=== PATIENT | female | born 1990 | race African-American/Black ===

== ENCOUNTER 2017-03-12 08:00 | Inpatient (IN) | payer OTHER ==
[~2017-03-12 08:00] MED LIST: CITRIC ACID/SODIUM CITRATE 30 ML UNIT-DOSE CUP PO ONE; ELECTROLYTE-148 SOLN 500 ML IV ONE
[2017-03-12 09:26] VITALS: BMI 34.7
[2017-03-12] MEDS: ELECTROLYTE-148 SOLN 1,000 ML IV SCH (09:33)
[2017-03-12] MEDS ORDERED: morphine SULFATE/Preservative Free 0.5 MG/ML (1cc Syringe) EP ONE (10:01)
[2017-03-12] MEDS ORDERED: IBUPROFEN 800 MG/8 ML IJ IVPB PRN (10:01)
[2017-03-12] MEDS ORDERED: ONDANSETRON 4 MG/2 ML VIAL IVPB PRN (10:01)
--- NOTE | 2017-03-12 10:08 | HP ---
Past Medical History - Admission History of Present Illness: 26 y/o female with Di/Di Twin IUP at 38 weeks here for scheduled primary section for breech/breech twins. has been uncomplicated thus far. Followed with MFM throughout - testing all WNL. Bpositive , RPR negative, HepBSag negative, Rubella equivocal. History Source: Patient, Medical Record Limitations to Obtaining History: No Limitations - Past Medical History Cardiovascular: No: HTN, DC Pulmonary: No: COPD Gastrointestinal: No: GERD, Hemorrhoids Hepatobiliary: No: Cholecystitis, Hepatitis B Renal/: No: Renal Inusuff, UTI Reproductive: No: Ectopic , Fibroids ...: 3 ...Para: 2 ...Term: 2 ...: 0 ...Spon : 0 ...Induced : 0 ...LMP: 06/19/16 ... Weeks Gestation by Dates: 38 ...EDC by Dates: 03/26/17 ...EDC by Sono: 03/24/17 Heme/Onc: Yes: Sickle Cell Trait Infectious Disease: No: MRSA, STD's Psych: No: Anxiety, Bipolar, Depression - Past Surgical History Past Surgical History: Yes: None Hx Myomectomy: No Hx Transabdominal Cerclage: No - Smoking History Smoking history: Never smoked Have you smoked in the past 12 months: No - Alcohol/Substance Use Hx Alcohol Use: No History of Substance Use: reports: None - Social History Usual Living Arrangement: Yes: With Spouse History of Recent Travel: No Home Medications - Allergies Allergies/Adverse Reactions: Allergies Allergy/AdvReac Type Severity Reaction Status Date / Time No Known Drug Allergies Allergy Intermediate Verified 03/12/17 09:28 - Home Medications Home Medications: Ambulatory Orders Iron 1 tab PO DAILY 03/12/17 Vitamins (Sjr) - 1 tab PO DAILY 03/12/17 Physical Exam - Maternity Vital Signs: Vital Signs Temperature 97.9 F 03/12/17 09:09 Pulse Rate 76 03/12/17 09:09 Respiratory Rate 20 03/12/17 09:09 Blood Pressure 129/57 03/12/17 09:09 O2 Sat by Pulse Oximetry (%) Constitutional: Yes: Well Nourished, No Distress HENT: Yes: WNL, Atraumatic, Normocephalic Neck: Yes: Supple, Trachea Midline Cardiovascular: Yes: Regular Rate and Rhythm Lungs: Clear to auscultation - Abdominal Exam/OB Number of Fetuses: Multiple Presentation: Breech Contractions: Yes Regularity: Irregular Category: I - Vaginal Exam/OB Vaginal Bleediing: No Amniotic Membrane Status: Intact - Physical Exam Edema: No Hemorrhage Risk Assessment - Risk Factors Medium Risk Factors: Yes: Multiple gestation High Risk Factors: Yes: None Risk Score: 1 Risk Level: Medium Risk Problem List - Problems (1) Twin in third trimester Code(s): O30.003 - TWIN PREG, UNSP NUM PLCNTA & AMNIO SACS, THIRD TRIMESTER Assessment/Plan 26 y/o with di/di twin IUP at 38 weeks for scheduled repeat c section - AFVSS -FHTs cat 1 x 2 - NPO, insert aly in OR, Ancef preop - nursing and anesthesia aware
[2017-03-12] MEDS ORDERED: oxyCODONE HCL 5 MG TABLET PO PRN (11:00)
[2017-03-12] MEDS ORDERED: TUBERCULIN PPD 5 TU/0.1ML SYRINGE (IN PATIENT USE ONLY) ID ONE (11:00)
[2017-03-12] MEDS ORDERED: METHYLERGONOVINE MALEATE 0.2 MG/1 ML AMP IM PRN (11:00)
[2017-03-12] MEDS ORDERED: ACETAMINOPHEN 1000 MG/100 ML VIAL (NON FORMULARY) IVPB PRN (12:09)
[2017-03-12] MEDS: OXYTOCIN 20 UNITS in 0.9% NS 1,000 ML IV SCH (12:29)
[2017-03-12] MEDS: IBUPROFEN 800 MG/8 ML IJ IVPB PRN (12:30)
--- NOTE | 2017-03-12 12:30 | SURG ---
Surgery Candy Department Manager Note Candy Department Manager: Gil Smith PA-C Date of Service: 03/12/17 Diagnosis: 38 weeks (breech/breech twins) Procedure: Primary section --> (boy & girl) I was present for the entirety of the operative procedure. For further detail, please refer to operative report. Visit type - Case Type Case Type: Scheduled Admission - New patient This patient is new to me today: Yes Date on this admission: 03/12/17
--- NOTE | 2017-03-12 15:27 | OP ---
Operative Note - Note: Operative Date: 03/12/17 Pre-Operative Diagnosis: Di/Di twin IUP at 38 weeks, breech/breech position Operation: primary low transverse delivery Findings: normal b/l tubes and ovaries double footling breech position of baby , sacrum posterior (for both twins) Post-Operative Diagnosis: Same as Pre-op Surgeon: Siobhan Oliveros Model Engine Mechanic: Gil Smith Anesthesiologist/BOWLING BALL MOLDER: Diogo Asif Anesthesia: Spinal Specimens Removed: placenta Estimated Blood Loss (mls): 700 Operative Report Dictated: Yes
[2017-03-12] MEDS ORDERED: ceFAZolin SODIUM 1 GM VIAL ONE (16:43)
[2017-03-12] MEDS ORDERED: DEXTROSE 5%-WATER - 50 ML IVPB ONE (16:43)
[2017-03-12] MEDS: CEFAZOLIN 1 GM in DEXTROSE 5%-WATER - 50 ML IVPB SCH (17:36)
[2017-03-13] MEDS: IBUPROFEN 800 MG/8 ML IJ IVPB PRN (00:37)
[2017-03-13] MEDS: CEFAZOLIN 1 GM in DEXTROSE 5%-WATER - 50 ML IVPB SCH ×2 (01:55→09:25)
--- NOTE | 2017-03-13 07:51 | PN ---
Progress Note, Physician History of Present Illness: s/p section day obe xondition us stable patirnt offers no complaints - Current Medication List Current Medications: Active Medications Acetaminophen (Tylenol -) 650 mg PO Q4H PRN PRN Reason: FEVER OR PAIN Acetaminophen (Ofirmev Injection -) 1,000 mg IVPB Q6H PRN PRN Reason: PAIN Bisacodyl (Dulcolax Suppository -) 10 mg RC PRN PRN PRN Reason: CONSTIPATION Diphenhydramine HCl (Benadryl Injection -) 25 mg IVPUSH Q4H PRN PRN Reason: Pruritis Diphtheria/Tetanus/Acell Pertussis (Boostrix -) 0.5 ml IM .ONCE ONE Stop: 03/13/17 10:01 Parenteral Electrolytes (Plasma-Lyte 148 -) 1,000 mls @ 125 mls/hr IV ASDIR [facility] Last Admin: 03/12/17 09:33 Dose: 125 mls/hr Cefazolin Sodium 1 gm/ (Dextrose) 50 mls @ 100 mls/hr IVPB Q8H-IV [facility] Stop: 03/13/17 17:59 Last Admin: 03/13/17 01:55 Dose: 100 mls/hr Oxytocin/Sodium Chloride (Normal Saline+20 Units Oxytocin -) 1,000 mls @ 125 mls/hr IV ASDIR [facility] Last Admin: 03/12/17 12:29 Dose: 125 mls/hr Ibuprofen (Motrin -) 600 mg PO Q4H PRN PRN Reason: PAIN Methylergonovine Maleate (Methergine Injection -) 0.2 mg IM Q4H PRN PRN Reason: Excessive Bleeding (L&D) Oxycodone HCl (Roxicodone -) 5 mg PO Q4H PRN PRN Reason: PAIN LEVEL 1-5 Oxycodone HCl (Roxicodone -) 10 mg PO Q4H PRN PRN Reason: PAIN LEVEL 6-10 Simethicone (Mylicon -) 80 mg PO Q4H PRN PRN Reason: GAS - Objective Vital Signs: Vital Signs Temperature 98.5 F 03/13/17 05:39 Pulse Rate 64 03/13/17 05:39 Respiratory Rate 20 03/13/17 06:00 Blood Pressure 116/54 03/13/17 05:39 O2 Sat by Pulse Oximetry (%) Constitutional: Yes: Well Nourished, No Distress, Calm Eyes: Yes: WNL HENT: Yes: WNL Neck: Yes: WNL, Supple, Trachea Midline Cardiovascular: Yes: WNL, Regular Rate and Rhythm Respiratory: Yes: WNL Gastrointestinal: Yes: WNL, Normal Bowel Sounds, Soft ...Rectal Exam: Yes: Deferred Genitourinary: Yes: WNL. No: Anuria, Bladder Distention, CVA Tenderness - Left , CVA Tenderness - Right, Ortiz Present, Hematuria, Incontinence, Menses Present , Oliguria, Polyuria, , Scrotal Edema, Urethral Discharge, Vaginal Bleeding, Vaginal Discharge, Other Breast(s): Yes: WNL Musculoskeletal: Yes: WNL Extremities: Yes: WNL Edema: No Peripheral Pulses WNL: Yes Integumentary: Yes: WNL Wound/Incision: Yes: Clean/Dry Neurological: Yes: WNL, Alert, Oriented ...Motor Strength: WNL Psychiatric: Yes: Alert, Oriented Assessment/Plan S/P [place] Section, Day 1, condirion stable, condition past care.
[2017-03-13 08:01] LABS: BASOPHIL 0.2 % (0-2.0); EOSINOPHIL 0.7 % (0-4.5); MCH 24.3 pg (25.7-33.7); MCHC 32.7 g/dl (32.0-36.0); MEAN CELL VOLUME 74.1 fl (80-96); MEAN PLT VOLUME 9.5 fl (7.5-11.1); NEUTROPHILS 76.9 % (42.8-82.8); PLATELET COUNT 106 K/MM3 (134-434); WHITE BLOOD COUNT 14.5 K/mm3 (4.0-10.0)
--- NOTE | 2017-03-13 09:00 | PROC ---
Procedure Note Procedure: Anesthesia/Pain Pt seen and examined S:alert and awake,comfortable O: Vital Signs Temperature 98.5 F 03/13/17 05:39 Pulse Rate 64 03/13/17 05:39 Respiratory Rate 20 03/13/17 06:00 Blood Pressure 116/54 03/13/17 05:39 O2 Sat by Pulse Oximetry (%) CBC, BMP 03/13/17 06:00 A/P;Current Active Problems Twin in third trimester (Acute) s/p c section Doing well post op Continue current care Fuad Martin MD
[2017-03-13] MEDS ORDERED: DEXTROSE 5%-WATER - 50 ML IVPB ONE (09:16)
[2017-03-13] MEDS ORDERED: ceFAZolin SODIUM 1 GM VIAL ONE (09:16)
[2017-03-13] MEDS: IBUPROFEN 600 MG TABLET (FP) PO PRN ×4 (09:24→22:25)
[2017-03-13] MEDS: SIMETHICONE 80 MG TAB.CHEW (FP) PO PRN ×4 (09:24→22:26)
[2017-03-13] MEDS: ACETAMINOPHEN 325 MG TABLET (FP) PO PRN (09:24)
[2017-03-13 09:35] LABS: ANISOCYTOSIS 2+; MICROCYTOSIS 1+
[2017-03-13] MEDS ORDERED: DIPHTH,PERTUSS(ACELL),TET 0.5 ML DISP.SYRIN IM ONE (10:00)
[2017-03-13] MEDS ORDERED: BISACODYL 10 MG SUPP.RECT RC PRN (11:00)
[2017-03-13] MEDS: oxyCODONE HCL 5 MG TABLET PO PRN ×3 (14:16→22:25)
[2017-03-13] MEDS: OXYTOCIN 20 UNITS in 0.9% NS 1,000 ML IV SCH (15:43)
[2017-03-13] MEDS: ELECTROLYTE-148 SOLN 1,000 ML IV SCH (15:44)
[2017-03-14] MEDS: IBUPROFEN 600 MG TABLET (FP) PO PRN ×4 (04:42→20:40)
[2017-03-14] MEDS: SIMETHICONE 80 MG TAB.CHEW (FP) PO PRN ×4 (04:42→20:40)
[2017-03-14] MEDS: oxyCODONE HCL 5 MG TABLET PO PRN ×3 (04:43→20:41)
[2017-03-14] MEDS: ELECTROLYTE-148 SOLN 1,000 ML IV SCH (09:14)
[2017-03-14] MEDS: OXYTOCIN 20 UNITS in 0.9% NS 1,000 ML IV SCH (11:31)
--- NOTE | 2017-03-15 00:15 | PN ---
Progress Note (SOAP) - Subjective Chief Complaint: Pt doing well - Current Medications Current Medications: Active Medications Acetaminophen (Tylenol -) 650 mg PO Q4H PRN PRN Reason: FEVER OR PAIN Last Admin: 03/13/17 09:24 Dose: 650 mg Acetaminophen (Ofirmev Injection -) 1,000 mg IVPB Q6H PRN PRN Reason: PAIN Bisacodyl (Dulcolax Suppository -) 10 mg RC PRN PRN PRN Reason: CONSTIPATION Last Admin: 03/13/17 18:29 Dose: 10 mg Diphenhydramine HCl (Benadryl Injection -) 25 mg IVPUSH Q4H PRN PRN Reason: Pruritis Parenteral Electrolytes (Plasma-Lyte 148 -) 1,000 mls @ 125 mls/hr IV ASDIR [facility] Last Admin: 03/14/17 09:14 Dose: Not Given Oxytocin/Sodium Chloride (Normal Saline+20 Units Oxytocin -) 1,000 mls @ 125 mls/hr IV ASDIR [facility] Last Admin: 03/14/17 11:31 Dose: Not Given Ibuprofen (Motrin -) 600 mg PO Q4H PRN PRN Reason: PAIN Last Admin: 03/14/17 20:40 Dose: 600 mg Methylergonovine Maleate (Methergine Injection -) 0.2 mg IM Q4H PRN PRN Reason: Excessive Bleeding (L&D) Oxycodone HCl (Roxicodone -) 5 mg PO Q4H PRN PRN Reason: PAIN LEVEL 1-5 Last Admin: 03/14/17 20:41 Dose: 5 mg Oxycodone HCl (Roxicodone -) 10 mg PO Q4H PRN PRN Reason: PAIN LEVEL 6-10 Last Admin: 03/14/17 09:13 Dose: 10 mg Simethicone (Mylicon -) 80 mg PO Q4H PRN PRN Reason: GAS Last Admin: 03/14/17 20:40 Dose: 80 mg - Objective Vital Signs: Vital Signs Temperature 97.8 F 03/14/17 20:34 Pulse Rate 80 03/14/17 20:34 Respiratory Rate 20 03/14/17 20:34 Blood Pressure 108/75 03/14/17 20:34 O2 Sat by Pulse Oximetry (%) Constitutional: Yes: Well Nourished, No Distress Cardiovascular: Yes: WNL, Regular Rate and Rhythm Respiratory: Yes: WNL Gastrointestinal: Yes: WNL, Normal Bowel Sounds, Soft ....Post : Yes: Uterus firm, Uterus non-tender Breast(s): Yes: WNL Musculoskeletal: Yes: WNL Extremities: Yes: WNL Edema: No Wound/Incision: Yes: Clean/Dry, Well Approximated Neurological: Yes: WNL, Alert, Oriented Labs Lab Results: CBC, BMP 03/13/17 06:00 Problem List - Problems (1) delivery delivered Code(s): O82 - ENCOUNTER FOR DELIVERY WITHOUT INDICATION Assessment/Plan pod 2 stable Plan OOB motrin prn percocel prn
[2017-03-15] MEDS: oxyCODONE HCL 5 MG TABLET PO PRN ×5 (00:16→20:11)
[2017-03-15] MEDS: SIMETHICONE 80 MG TAB.CHEW (FP) PO PRN ×5 (00:16→20:09)
[2017-03-15] MEDS: ACETAMINOPHEN 325 MG TABLET (FP) PO PRN ×4 (04:06→20:12)
[2017-03-15 08:58] LABS: BASOPHIL 0.3 % (0-2.0); EOSINOPHIL 1.3 % (0-4.5); MCH 24.5 pg (25.7-33.7); MCHC 32.6 g/dl (32.0-36.0); MEAN CELL VOLUME 75.2 fl (80-96); MEAN PLT VOLUME 10.1 fl (7.5-11.1); NEUTROPHILS 64.7 % (42.8-82.8); PLATELET COUNT 143 K/MM3 (134-434); RDW 21.7 % (11.6-15.6); WHITE BLOOD COUNT 11.2 K/mm3 (4.0-10.0)
--- NOTE | 2017-03-15 11:49 | PN ---
Post Progress Note - Subjective Subjective: Pt seen/evaluated and doing well. Was trying to take less pain meds yesterday and had some incisional pain, but is now better controlled. Tolerating diet, ambulating, voiding, passing flatus. No CP/SOB/F/C/HIDALGO. Type of Delivery: Primary C/S Vital Signs: Vital Signs Temperature 98.1 F 03/15/17 09:56 Pulse Rate 73 03/15/17 09:56 Respiratory Rate 20 03/15/17 09:56 Blood Pressure 114/68 03/15/17 09:56 O2 Sat by Pulse Oximetry (%) Uterus: Yes: Fundus Firm, Fundus below umbilicus Incision: Yes: Sutures intact Abdomen/GI: Yes: Abdomen soft, Tender (appropriate post surgical tenderness), Passing flatus. No: Abdominal Distention Lochia, amount: Small Extremities: Yes: Calves non-tender, Edema (trace b/l LE edema, nonpitting) Perineum: Yes: Intact Activity: Ambulating - Labs Labs: CBC WBC 11.2 K/mm3 (4.0-10.0) H 03/15/17 08:00 RBC 3.97 M/mm3 (3.60-5.2) 03/15/17 08:00 Hgb 9.7 GM/dL (10.7-15.3) L 03/15/17 08:00 Hct 29.9 % (32.4-45.2) L 03/15/17 08:00 MCV 75.2 fl (80-96) L 03/15/17 08:00 MCH 24.5 pg (25.7-33.7) L 03/15/17 08:00 MCHC 32.6 g/dl (32.0-36.0) 03/15/17 08:00 RDW 21.7 % (11.6-15.6) H 03/15/17 08:00 Plt Count 143 K/MM3 (134-434) D 03/15/17 08:00 MPV 10.1 fl (7.5-11.1) 03/15/17 08:00 Neutrophils % 64.7 % (42.8-82.8) 03/15/17 08:00 Lymphocytes % 23.9 % (8-40) D 03/15/17 08:00 Monocytes % 9.8 % (3.8-10.2) 03/15/17 08:00 Eosinophils % 1.3 % (0-4.5) D 03/15/17 08:00 Basophils % 0.3 % (0-2.0) 03/15/17 08:00 Anisocytosis 2+ 03/13/17 06:00 Microcytosis 1+ 03/13/17 06:00 Problem List - Problems (1) Twin in third trimester Code(s): O30.003 - TWIN PREG, UNSP NUM PLCNTA & AMNIO SACS, THIRD TRIMESTER Qualifiers: Multiple gestation type: dichorionic and diamniotic Qualified Code(s ): O30.043 - Twin , dichorionic/diamniotic, third trimester (2) delivery delivered Code(s): O82 - ENCOUNTER FOR DELIVERY WITHOUT INDICATION (3) Anemia Code(s): D64.9 - ANEMIA, UNSPECIFIED Assessment/Plan 26 y/o POD#3 s/p primary LTCS for di/di twin IUP and breech presentation - AFVSS - Hgb 9.7 post op, pt asymptomatic, continue PO iron and vitamins - regular diet - encourage ambulation - plan for discharge home in a.m. 03/16
[2017-03-15] MEDS ORDERED: oxyCODONE HCL 5 MG TABLET PO PRN (14:46)
[2017-03-16] MEDS: ACETAMINOPHEN 325 MG TABLET (FP) PO PRN ×2 (00:14→08:01)
[2017-03-16] MEDS: IBUPROFEN 600 MG TABLET (FP) PO PRN (00:15)
[2017-03-16] MEDS: oxyCODONE HCL 5 MG TABLET PO PRN (08:00)
[2017-03-16] MEDS: SIMETHICONE 80 MG TAB.CHEW (FP) PO PRN (08:01)
[2017-03-16 09:02] VITALS: BP 136/74; PULSE 72; TEMP 97.7
--- NOTE | 2017-03-17 16:44 | PATH ---
Surgical Pathology Report Patient Name: KIMBERLY AVALOS [facility]. Rec. 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 Specimen(s) Received PLACENTA Clinical History twin gestation; x2 08/2009, 12/2013, sickle cell trait carrier C/section Final Diagnosis TWIN PLACENTA, DELIVERY: DIAMNIOTIC DICHORIONIC FUSED TWIN PLACENTA: FOCALLY DISRUPTED THIRD TRIMESTER FUSED TWIN PLACENTA WITH MODERATE PREVILLOUS, PERIVILLOUS, AND PRECHORIONIC FIBRIN DEPOSITION, FOCAL CALCIFICATIONS THREE VESSEL UMBILICAL CORDS, AND UNREMARKABLE PLACENTAL MEMBRANES. Electronically Signed Woody Marsh M.D. Gross Description Received in formalin labeled "placenta" is a twin placenta comprised of 2 fused discs, by dividing membranes. There is one clamp marking the umbilical cord designated as placenta "A" and 2 clamps marking the umbilical cord of designated as placenta "B". The placenta weighs 654 g and measures 25.0 x 17.0 x 2.0 cm. The attached membranes are oliveira, translucent with focal opacities and insert marginally. The umbilical cord of placenta "A" is 29 cm in length and averages 1 cm in diameter. The cord inserts eccentrically, 4 cm to the nearest margin. No true knots or strictures are identified. Cut surface of the umbilical cord reveal 3 vessels. The umbilical cord of placenta "B" measures 32 cm in length and averages 0.9 cm in diameter. The cord inserts eccentrically, 4 cm to the nearest margin. No true knots or strictures are identified. Cut surface of the umbilical cord reveals 3 vessels. The surface is andersen-blue with fibrin deposition and appropriate caliber vessels. The maternal surface is red-brown with focal defects. Sectioning reveals red-brown, spongy parenchyma. No focal lesions are identified. Business Solutions Consultant sections are submitted in 7 cassettes as follows: 1-placenta "A" membrane roll and umbilical cord; 6-4-niik-thickness sections of placenta "A"; 4-dividing membranes; 5-placenta "B" membrane roll and umbilical cord; 2-0-slco-thickness sections of placenta "B". /03/16/2017 [facility]03/16/2017
--- NOTE | 2017-03-18 12:46 | OP ---
DATE OF OPERATION: 03/12/2017 PREOPERATIVE DIAGNOSIS: Diamniotic dichorionic twin intrauterine in breech-breech position. POSTOPERATIVE DIAGNOSIS: Diamniotic dichorionic twin intrauterine in breech-breech position. PROCEDURE: Scheduled primary low transverse section at 38 weeks. SURGEON: Siobhan Oliveros DO [employer] SUPERVISOR: TIMA Riggins ESTIMATED BLOOD LOSS: 700 mL. COMPLICATIONS: None. SPECIMENS: Included placenta and cord blood. DISPOSITION: Stable to PACU. BRIEF HISTORY AND PROCEDURE: The patient is a 26-year-old female with known diamniotic dichorionic twin intrauterine whose fetuses are both in the breech position. The patient was counseled on her options and was scheduled for a primary low transverse section. The patient was admitted to [facility] on March 12, 2017 where consents were reconfirmed and signed. She was then taken back to the operating room, given spinal anesthesia, and placed in the dorsal supine position on the operating room table. A Ortiz catheter was placed under sterile conditions, and she was then prepped and draped in the usual sterile fashion. A hard time-out was performed. A Pfannenstiel skin incision was created in the skin using a scalpel and carried to the underlying layer of rectus fascia with the Bovie. The rectus fascia was incised on either side of the midline with the Bovie and carried in a superolateral direction. The fascia was tented upward and dissected off the underlying layer of rectus muscle with the Bovie. The rectus muscle was retracted laterally, and the peritoneum was entered bluntly. A bladder blade was then inserted. A transverse incision was then created on the uterus with a scalpel and carried in a superolateral direction bluntly. Next, the amniotic sac of baby A was ruptured, and the infant was delivered in the sacrum anterior position in a footling breech position. The feet were grasped gently and elevated out of the abdomen. Next, the hips of the infant were grasped and gently elevated out of the abdomen up to the level of the axilla. The baby was rotated and the right arm delivered without any assistance spontaneously. The baby was then rotated in a clockwise direction in 180 degrees, and left arm was gently grasped and swept across the anterior chest and delivered without difficulty. The head was then delivered ensuring that the head was in a flexed position safely and without difficulty. Delayed cord clamping for approximately 1 minute was achieved at this time. The cord was then clamped twice and cut, and the was taken up to the warmer to be assessed by the Neonatology staff. Next, the amniotic sac of baby B after the feet were identified was ruptured. The feet, again, were grasped and elevated out of the abdomen. Again, the baby was noted to be in double footling breech sacrum anterior position. The hips were grasped until they reached the level of the axilla, and both arms appeared to be extended above the head. The infant was rotated 180 degrees in both directions until the left arm was able to be easily grasped at the antecubital fossa with gentle pressure sweeping anteriorly and down over the chest until it was delivered. The was then rotated in 180-degree fashion counterclockwise until the right arm was also able to be grasped at the antecubital fossa and gently swept anteriorly and downward over the chest. Again, the head was delivered without difficulty in a flexed position. At this point, baby B did not undergo delayed cord clamping due to the length of time it took to deliver the baby. The cord was clamped twice and cut in between and taken over to the warmth to be assessed by Neonatology as well. The placentas were then delivered manually, extracted, and sent off to pathology for evaluation. The uterus was exteriorized from the abdomen, inspected, and cleared of all amniotic membrane and debris with a dry lap sponge. The hysterotomy was reapproximated in a running locked fashion with 1 Vicryl suture as the first layer and then 0 Biosyn suture as the 2nd layer. Bilateral tubes and ovaries were noted to be within normal limits. The posterior cul-de-sac was suctioned. The uterus was placed back into the abdomen. Bilateral gutters were inspected and cleared of all debris and blood clot. The hysterotomy, again, was noted to be hemostatic. The peritoneum was then reapproximated in a running fashion using 2-0 chromic. The muscles were reapproximated in 3 interrupted sutures using 0 Biosyn suture. The fascia was reapproximated using 1 Vicryl suture in a running fashion. The subcutaneous tissue was irrigated and reapproximated in interrupted sutures. The skin was reapproximated in subcuticular fashion, and Steri-Strips were applied. The patient tolerated the procedure well and is recovering in stable condition in the PACU area after this procedure. Sponge, needle, and instrument counts were reported to be correct at the end of the case. SIOBHAN OLIVEROS DO /[id number]
== END 2017-03-16 11:35 | disposition home or self-care (01) | DRG 765 ==
LOC: JLDR 08:25 → J3W 14:46
PROVIDERS: ADMIT Obstetrics & Gynecology; ATTEND Obstetrics & Gynecology
PROC: 10D00Z1 Extraction of Products of Conception, Low, Open Approach (ICD-10-PCS; principal; 2017-03-12)
DX: O32.1XX0 Maternal care for breech presentation, not applicable or unspecified (principal); O30.043 Twin pregnancy, dichorionic/diamniotic, third trimester; O99.02 Anemia complicating childbirth; Z3A.38 38 weeks gestation of pregnancy; Z37.2 Twins, both liveborn
CPT/HCPCS: 36415; 85025; 88307-TC; 90715

== ENCOUNTER 2021-02-26 08:00 | Inpatient (IN) | payer OTHER ==
[2021-02-26] MEDS ORDERED: CITRIC ACID/SODIUM CITRATE 30 ML UNIT-DOSE CUP PO ONE (09:46)
[2021-02-26] MEDS ORDERED: LIGASURE IMPACT TP ONE (09:48)
[2021-02-26] MEDS ORDERED: OXYTOCIN 20 UNITS in 0.9% NS 20 UNIT/1,000 ML INFUS.BAG IV SCH (11:25)
[2021-02-26 12:05] VITALS: BMI 22.5
[2021-02-26 12:24] LABS: CORD BASE EXCESS -2.2 mmol/L (0-2); CORD HCO3 23.9 mmHg (20-29); CORD PCO2 45.5 mmHg (30-78); CORD pH 7.338 (7.14-7.44)
[2021-02-26 12:29] LABS: CORD BASE EXCESS -4.2 mmol/L (0-2); CORD HCO3 23.9 mmHg (20-29); CORD PCO2 56.3 mmHg (30-78); CORD pH 7.245 (7.14-7.44)
[2021-02-26] MEDS ORDERED: BENZOCAINE 28 GM HEMORRHOIDAL OINTMENT TP PRN (12:34)
[2021-02-26] MEDS ORDERED: WITCH HAZEL 50% (TUCKS) 40 PAD/JAR PAD TP PRN (12:34)
[2021-02-26] MEDS ORDERED: BENZOCAINE 20% 57 GM BOTTLE TP PRN (12:34)
[2021-02-26] MEDS ORDERED: IBUPROFEN 800 MG/8 ML IJ IVPB PRN (12:34)
[2021-02-26] MEDS ORDERED: oxyCODONE HCL 5 MG TABLET PO PRN (12:34)
[2021-02-26] MEDS ORDERED: METHYLERGONOVINE MALEATE 0.2 MG/1 ML AMP IM PRN (12:34)
[2021-02-26] MEDS ORDERED: IBUPROFEN 800 MG/8 ML IJ IVPB ONE (12:49)
[2021-02-26] MEDS ORDERED: OXYTOCIN 20 UNITS in 0.9% NS 20 UNIT/1,000 ML INFUS.BAG IV ONE ×2 (12:55→15:11)
[2021-02-26] MEDS: ACETAMINOPHEN 1000 MG/100 ML VIAL (NON FORMULARY) IVPB PRN (13:00)
[2021-02-26] MEDS ORDERED: SENNOSIDES/DOCUSATE COMBO (SENNA PLUS) TABLET (UD) PO PRN (22:00)
[2021-02-27] MEDS: ACETAMINOPHEN 1000 MG/100 ML VIAL (NON FORMULARY) IVPB PRN (06:31)
[2021-02-27] MEDS: PRENATAL VITAMINS W/ FOLIC ACID TABLET (FP) PO SCH (09:06)
[2021-02-27 10:12] LABS: BASO % 0.3 % (0-2.0); EOS % 1.1 % (0-4.5); HEMATOCRIT 31.8 % (32.4-45.2); HEMOGLOBIN 11.1 GM/dL (10.7-15.3); LYMPH % 12.5 % (8-40); MCH 29.4 pg (25.7-33.7); MEAN CELL VOLUME 83.9 fl (80-96); MEAN PLT VOLUME 9.7 fl (7.5-11.1); MONO % 7.4 % (3.8-10.2); NEUT % 78.7 % (42.8-82.8); PLATELET COUNT 149 10^3/uL (134-434); RBC 3.79 M/mm3 (3.60-5.2)
[2021-02-27] MEDS: SIMETHICONE 80 MG TAB.CHEW (FP) PO PRN ×2 (10:46→18:37)
[2021-02-27] MEDS: IBUPROFEN 600 MG TABLET (FP) PO PRN ×2 (10:46→18:37)
[2021-02-27] MEDS ORDERED: BISACODYL 10 MG SUPP.RECT RC PRN (12:34)
[2021-02-28] MEDS: IBUPROFEN 600 MG TABLET (FP) PO PRN ×3 (02:19→19:55)
[2021-02-28] MEDS: PRENATAL VITAMINS W/ FOLIC ACID TABLET (FP) PO SCH (09:50)
[2021-02-28] MEDS: SIMETHICONE 80 MG TAB.CHEW (FP) PO PRN ×2 (15:03→23:42)
[2021-03-01 07:26] LABS: BASO % 0.3 % (0-2.0); EOS % 2.6 % (0-4.5); HEMATOCRIT 30.4 % (32.4-45.2); HEMOGLOBIN 10.7 GM/dL (10.7-15.3); LYMPH % 22.3 % (8-40); MCH 29.3 pg (25.7-33.7); MEAN CELL VOLUME 83.6 fl (80-96); MEAN PLT VOLUME 9.3 fl (7.5-11.1); MONO % 9.1 % (3.8-10.2); NEUT % 65.7 % (42.8-82.8); PLATELET COUNT 161 10^3/uL (134-434); RBC 3.64 M/mm3 (3.60-5.2); RDW 14.9 % (11.6-15.6); WHITE BLOOD COUNT 8.8 K/mm3 (4.0-10.0)
[2021-03-01] MEDS: PRENATAL VITAMINS W/ FOLIC ACID TABLET (FP) PO SCH (09:02)
[2021-03-01 11:03] VITALS: BP 130/60; PULSE 82; TEMP 98
== END 2021-03-01 11:55 | disposition home or self-care (01) | DRG 788 ==
LOC: JLDR 08:00 → J3W 15:20
PROVIDERS: ADMIT Obstetrics & Gynecology; ATTEND Obstetrics & Gynecology
PROC: 10D00Z1 Extraction of Products of Conception, Low, Open Approach (ICD-10-PCS; principal; 2021-02-26)
DX: O34.211 Maternal care for low transverse scar from previous cesarean delivery (principal); O99.02 Anemia complicating childbirth; D57.3 Sickle-cell trait; O99.214 Obesity complicating childbirth; E66.9 Obesity, unspecified; Z30.2 Encounter for sterilization; Z3A.40 40 weeks gestation of pregnancy; Z37.0 Single live birth
CPT/HCPCS: 36415; 36600; 82803; 85025; J0131